=== PATIENT | male | born 1940 | race Caucasian/White ===

== ENCOUNTER 2023-05-19 20:48 | Emergency (ER) | payer MEDICARE, OTHER ==
[2023-05-19] MEDS ORDERED: Silver Sulfadiazine 50 GM TUBE ONE (21:48)
== END 2023-05-19 22:30 | disposition home or self-care (01) ==
LOC: CSHERS 20:48
DX: T24.212A Burn of second degree of left thigh, initial encounter (principal); T24.111A Burn of first degree of right thigh, initial encounter; T31.0 Burns involving less than 10% of body surface; I13.0 Hypertensive heart and chronic kidney disease with heart failure and stage 1 through stage 4 chronic kidney disease, or unspecified chronic kidney disease; I50.9 Heart failure, unspecified; N18.9 Chronic kidney disease, unspecified; E03.9 Hypothyroidism, unspecified; I48.91 Unspecified atrial fibrillation; X10.0XXA Contact with hot drinks, initial encounter
CPT/HCPCS: 99283